=== PATIENT | male | born 1975 | race Caucasian/White ===

== ENCOUNTER 2021-11-06 15:25 | Inpatient (IN) | payer OTHER ==
[~2021-11-06] VITALS: Ht 160 cm; Wt 89.4 kg
[2021-11-06 15:40] VITALS: BP 103/59
[2021-11-06 20:30] VITALS: BP 118/61
[2021-11-06] MEDS: ETHYL ALCOHOL 62% ANTISEPTIC NASAL INHALANT 0.6 ML AMPUL NASAL SCH (21:28)
[2021-11-06] MEDS: DOCUSATE SODIUM 100 MG CAPSULE PO SCH (21:28)
[2021-11-06] MEDS: DEXAMETHASONE 4 MG TABLET PO SCH (21:29)
[2021-11-06] MEDS: AMOX TR/POT CLAV 875 MG/125 MG TABLET PO SCH (21:29)
[2021-11-06] MEDS: SENNA 187 MG TABLET PO SCH (21:29)
[2021-11-06] MEDS: LevETIRAcetam 500 MG TABLET PO SCH (21:29)
[2021-11-07] VITALS: BP 104/66
[2021-11-07] MEDS: FAMOTIDINE 20 MG TABLET PO SCH ×2 (05:56→16:30)
[2021-11-07 07:30] LABS: BASOPHILS % (AUTO) 0.1 % (0.0-2.0); EOSINOPHILS % (AUTO) 0 % (1.0-6.0); HEMATOCRIT 39.5 % (41-53); HEMOGLOBIN 13.4 g/dL (13.5-17.5); LYMPHOCYTES # (AUTO) 2.6 K/uL (1.0-4.8); LYMPHOCYTES % (AUTO) 27.4 % (22.0-44.0); MEAN CORPUSCULAR HEMOGLOBIN 29.3 pg (26.0-34.0); MEAN CORPUSCULAR VOLUME 86 fL (80-100); MONOCYTES # (AUTO) 0.6 K/uL (0.1-1.0); MONOCYTES % (AUTO) 6.2 % (2.0-9.0); NEUTROPHILS # (AUTO) 6.3 K/uL (1.8-7.7); NEUTROPHILS % (AUTO) 66.3 % (40.0-70.0); PLATELET COUNT (AUTO) 258 K/uL (150-450); RED BLOOD CELL COUNT(AUTO) 4.59 MIL/uL (4.50-5.90); RED CELL DISTRIBUTION WIDTH 14.9 % (11.5-14.5)
[2021-11-07 08:04] LABS: ALANINE AMINOTRANSFERASE 90 U/L (12-78); ALBUMIN 2.6 g/dL (3.4-5.0); ALKALINE PHOSPHATASE 78 U/L (46-116); ANION GAP 11 mmol/L (8-16); ASPARTATE AMINOTRANSFERASE 22 U/L (15-37); BILIRUBIN,TOTAL 0.6 mg/dL (0.1-1.0); CALCIUM, TOTAL 9.3 mg/dL (8.8-10.5); CARBON DIOXIDE 25 mmol/L (22-29); CHLORIDE 103 mmol/L (98-107); GLOMERULAR FILTR. RATE CALC > 60 mL/min (>60); GLUCOSE,RANDOM 106 mg/dL (70-110); POTASSIUM 4.2 mmol/L (3.5-5.1); SODIUM SERUM 139 mmol/L (136-145); TOTAL PROTEIN, SERUM 6.7 g/dL (6.4-8.2); UREA NITROGEN, BLOOD 16 mg/dL (7-18)
[2021-11-07] MEDS: ETHYL ALCOHOL 62% ANTISEPTIC NASAL INHALANT 0.6 ML AMPUL NASAL SCH ×2 (08:19→21:20)
[2021-11-07] MEDS: DOCUSATE SODIUM 100 MG CAPSULE PO SCH ×2 (08:19→21:19)
[2021-11-07] MEDS: AMOX TR/POT CLAV 875 MG/125 MG TABLET PO SCH ×2 (08:19→21:21)
[2021-11-07] MEDS: DEXAMETHASONE 4 MG TABLET PO SCH ×2 (08:19→21:21)
[2021-11-07] MEDS: LevETIRAcetam 500 MG TABLET PO SCH ×2 (08:20→21:19)
[2021-11-07 09:40] VITALS: BP 98/47
[2021-11-07] MEDS ORDERED: SODIUM CHLORIDE 0.9% 1,000 ML IV ONE (15:00)
[2021-11-07 15:20] VITALS: BP 133/61
[2021-11-07] MEDS ORDERED: FentaNYL CITRATE PF 100 MCG/2 ML VIAL ONE (18:28)
[2021-11-07] MEDS ORDERED: MIDAZOLAM HCL 2 MG/2 ML VIAL ONE (18:29)
[2021-11-07] MEDS ORDERED: IOHEXOL 300 MG/ML 150 ML VIAL ONE (18:40)
[2021-11-07] MEDS ORDERED: LIDOCAINE/PF 1% 30 ML VIAL ONE (18:42)
[2021-11-07] MEDS ORDERED: FentaNYL CITRATE PF 100 MCG/2 ML VIAL IVP ONE (18:45)
[2021-11-07] MEDS ORDERED: MIDAZOLAM HCL 2 MG/2 ML VIAL IVP ONE (18:45)
[2021-11-07 19:35] VITALS: BP 121/62
[2021-11-07] MEDS: MELATONIN 3 MG TABLET PO PRN (21:19)
[2021-11-07] MEDS: SENNA 187 MG TABLET PO SCH (21:19)
[2021-11-07] MEDS ORDERED: SODIUM CL IRRIG SOLN BOTTLE 250 ML IRRIG ONE (21:41)
[2021-11-07 23:09] VITALS: BP 94/57
[2021-11-07] MEDS: ACETAMINOPHEN 325 MG TABLET PO PRN (23:09)
[2021-11-08] MEDS: FAMOTIDINE 20 MG TABLET PO SCH ×2 (05:52→16:57)
[2021-11-08 08:08] VITALS: BP 104/60
[2021-11-08] MEDS: MULTIVITAMINS WITH MINERALS, THERAPEUTIC TABLET PO SCH (09:13)
[2021-11-08] MEDS: LevETIRAcetam 500 MG TABLET PO SCH ×2 (09:13→20:26)
[2021-11-08] MEDS: AMOX TR/POT CLAV 875 MG/125 MG TABLET PO SCH ×2 (09:14→20:26)
[2021-11-08] MEDS: DOCUSATE SODIUM 100 MG CAPSULE PO SCH ×2 (09:14→20:26)
[2021-11-08] MEDS: DEXAMETHASONE 4 MG TABLET PO SCH ×2 (09:14→20:26)
[2021-11-08] MEDS: ETHYL ALCOHOL 62% ANTISEPTIC NASAL INHALANT 0.6 ML AMPUL NASAL SCH ×2 (09:14→20:26)
[2021-11-08] MEDS: ENOXAPARIN SODIUM 60 MG/0.6 ML PF SYRINGE SQ SCH ×2 (09:23→20:26)
[2021-11-08 16:17] VITALS: BP 130/75
[2021-11-08] MEDS: MELATONIN 3 MG TABLET PO PRN (20:26)
[2021-11-08] MEDS: SENNA 187 MG TABLET PO SCH (20:31)
[2021-11-09] VITALS: BP 101/56
[2021-11-09] MEDS: FAMOTIDINE 20 MG TABLET PO SCH ×2 (06:01→17:50)
[2021-11-09 08:05] VITALS: BP 103/56
[2021-11-09] MEDS: ENOXAPARIN SODIUM 60 MG/0.6 ML PF SYRINGE SQ SCH ×2 (08:23→20:10)
[2021-11-09] MEDS: DOCUSATE SODIUM 100 MG CAPSULE PO SCH ×2 (08:23→20:11)
[2021-11-09] MEDS: MULTIVITAMINS WITH MINERALS, THERAPEUTIC TABLET PO SCH (08:23)
[2021-11-09] MEDS: DEXAMETHASONE 4 MG TABLET PO SCH ×2 (08:23→20:11)
[2021-11-09] MEDS: AMOX TR/POT CLAV 875 MG/125 MG TABLET PO SCH ×2 (08:23→20:11)
[2021-11-09] MEDS: LevETIRAcetam 500 MG TABLET PO SCH ×2 (08:23→20:11)
[2021-11-09] MEDS: ETHYL ALCOHOL 62% ANTISEPTIC NASAL INHALANT 0.6 ML AMPUL NASAL SCH ×2 (08:24→20:11)
[2021-11-09] MEDS: ACETAMINOPHEN 325 MG TABLET PO PRN (13:23)
[2021-11-09 16:05] VITALS: BP 98/62
[2021-11-09] MEDS: SENNA 187 MG TABLET PO SCH (20:11)
[2021-11-09] MEDS: MELATONIN 3 MG TABLET PO PRN (20:11)
[2021-11-10] VITALS: BP 115/64
[2021-11-10] MEDS: FAMOTIDINE 20 MG TABLET PO SCH ×2 (06:28→16:20)
[2021-11-10 08:00] VITALS: BP 102/69
[2021-11-10] MEDS: ETHYL ALCOHOL 62% ANTISEPTIC NASAL INHALANT 0.6 ML AMPUL NASAL SCH ×2 (09:01→21:42)
[2021-11-10] MEDS: AMOX TR/POT CLAV 875 MG/125 MG TABLET PO SCH ×2 (09:01→21:43)
[2021-11-10] MEDS: MULTIVITAMINS WITH MINERALS, THERAPEUTIC TABLET PO SCH (09:01)
[2021-11-10] MEDS: ENOXAPARIN SODIUM 60 MG/0.6 ML PF SYRINGE SQ SCH ×2 (09:01→21:42)
[2021-11-10] MEDS: LevETIRAcetam 500 MG TABLET PO SCH ×2 (09:02→21:42)
[2021-11-10] MEDS: DOCUSATE SODIUM 100 MG CAPSULE PO SCH ×2 (09:02→21:43)
[2021-11-10 16:05] VITALS: BP 122/62
[2021-11-10] MEDS: ACETAMINOPHEN 325 MG TABLET PO PRN (19:06)
[2021-11-10] MEDS: DEXAMETHASONE 2 MG TABLET PO SCH (21:43)
[2021-11-10] MEDS: SENNA 187 MG TABLET PO SCH (21:43)
[2021-11-11] VITALS: BP 113/67
[2021-11-11] MEDS: FAMOTIDINE 20 MG TABLET PO SCH ×2 (06:09→16:45)
[2021-11-11 08:30] VITALS: BP 98/57
[2021-11-11] MEDS: MULTIVITAMINS WITH MINERALS, THERAPEUTIC TABLET PO SCH (08:32)
[2021-11-11] MEDS: LevETIRAcetam 500 MG TABLET PO SCH ×2 (08:32→21:50)
[2021-11-11] MEDS: DOCUSATE SODIUM 100 MG CAPSULE PO SCH ×2 (08:32→21:50)
[2021-11-11] MEDS: ENOXAPARIN SODIUM 60 MG/0.6 ML PF SYRINGE SQ SCH ×2 (08:32→21:51)
[2021-11-11] MEDS: ACETAMINOPHEN 325 MG TABLET PO PRN ×2 (08:32→21:58)
[2021-11-11] MEDS: ETHYL ALCOHOL 62% ANTISEPTIC NASAL INHALANT 0.6 ML AMPUL NASAL SCH ×2 (08:32→21:50)
[2021-11-11] MEDS: AMOX TR/POT CLAV 875 MG/125 MG TABLET PO SCH ×2 (08:32→21:50)
[2021-11-11] MEDS: DEXAMETHASONE 2 MG TABLET PO SCH ×2 (09:00→22:25)
[2021-11-11 16:05] VITALS: BP 125/59
[2021-11-11] MEDS: SENNA 187 MG TABLET PO SCH (21:50)
[2021-11-12] VITALS: BP 104/64
[2021-11-12] MEDS: FAMOTIDINE 20 MG TABLET PO SCH ×2 (06:02→16:03)
[2021-11-12 08:01] VITALS: BP 92/54
[2021-11-12] MEDS: ETHYL ALCOHOL 62% ANTISEPTIC NASAL INHALANT 0.6 ML AMPUL NASAL SCH ×2 (08:05→20:35)
[2021-11-12] MEDS: DOCUSATE SODIUM 100 MG CAPSULE PO SCH ×2 (08:05→20:35)
[2021-11-12] MEDS: ENOXAPARIN SODIUM 60 MG/0.6 ML PF SYRINGE SQ SCH ×2 (08:05→20:35)
[2021-11-12] MEDS: LevETIRAcetam 500 MG TABLET PO SCH ×2 (08:05→20:35)
[2021-11-12] MEDS: MULTIVITAMINS WITH MINERALS, THERAPEUTIC TABLET PO SCH (08:05)
[2021-11-12] MEDS: DEXAMETHASONE 2 MG TABLET PO SCH ×2 (08:05→20:35)
[2021-11-12 15:20] VITALS: BP 111/68
[2021-11-12 20:00] VITALS: BP 118/62
[2021-11-12] MEDS: SENNA 187 MG TABLET PO SCH (20:35)
[2021-11-12 23:24] VITALS: BP 105/61
[2021-11-12] MEDS: ACETAMINOPHEN 325 MG TABLET PO PRN (23:24)
[2021-11-13] MEDS: FAMOTIDINE 20 MG TABLET PO SCH ×2 (06:18→18:14)
[2021-11-13] MEDS: LevETIRAcetam 500 MG TABLET PO SCH ×2 (07:49→20:32)
[2021-11-13] MEDS: DOCUSATE SODIUM 100 MG CAPSULE PO SCH ×2 (07:49→20:31)
[2021-11-13] MEDS: ETHYL ALCOHOL 62% ANTISEPTIC NASAL INHALANT 0.6 ML AMPUL NASAL SCH ×2 (07:49→20:31)
[2021-11-13] MEDS: ENOXAPARIN SODIUM 60 MG/0.6 ML PF SYRINGE SQ SCH ×2 (07:49→20:32)
[2021-11-13] MEDS: DEXAMETHASONE 2 MG TABLET PO SCH ×2 (07:49→20:32)
[2021-11-13] MEDS: MULTIVITAMINS WITH MINERALS, THERAPEUTIC TABLET PO SCH (07:49)
[2021-11-13 08:59] VITALS: BP 98/54
[2021-11-13 18:30] VITALS: BP 101/63
[2021-11-13 19:27] LABS: BASOPHILS % (AUTO) 0.2 % (0.0-2.0); EOSINOPHILS % (AUTO) 0.4 % (1.0-6.0); HEMATOCRIT 37.2 % (41-53); HEMOGLOBIN 12.7 g/dL (13.5-17.5); LYMPHOCYTES # (AUTO) 2.2 K/uL (1.0-4.8); LYMPHOCYTES % (AUTO) 27.3 % (22.0-44.0); MEAN CORPUSCULAR HEMOGLOBIN 29.4 pg (26.0-34.0); MEAN CORPUSCULAR HGB CONC 34.2 G/dL (31.0-37.0); MEAN CORPUSCULAR VOLUME 86 fL (80-100); MONOCYTES # (AUTO) 0.5 K/uL (0.1-1.0); MONOCYTES % (AUTO) 6.1 % (2.0-9.0); NEUTROPHILS # (AUTO) 5.4 K/uL (1.8-7.7); PLATELET COUNT (AUTO) 341 K/uL (150-450); RED BLOOD CELL COUNT(AUTO) 4.33 MIL/uL (4.50-5.90); RED CELL DISTRIBUTION WIDTH 15.3 % (11.5-14.5)
[2021-11-13 19:38] LABS: ANION GAP 11 mmol/L (8-16); CALCIUM, TOTAL 8.8 mg/dL (8.8-10.5); CARBON DIOXIDE 24 mmol/L (22-29); CHLORIDE 107 mmol/L (98-107); CREATININE 1.12 mg/dL (0.60-1.30); GLOMERULAR FILTR. RATE CALC > 60 mL/min (>60); GLUCOSE,RANDOM 150 mg/dL (70-110); POTASSIUM 3.4 mmol/L (3.5-5.1); SODIUM SERUM 142 mmol/L (136-145); UREA NITROGEN, BLOOD 20 mg/dL (7-18)
[2021-11-13] MEDS: SENNA 187 MG TABLET PO SCH (20:31)
[2021-11-14] VITALS: BP 121/71
[2021-11-14] MEDS ORDERED: SODIUM CL IRRIG SOLN BOTTLE 250 ML IRRIG ONE (01:06)
[2021-11-14] MEDS: FAMOTIDINE 20 MG TABLET PO SCH ×2 (05:36→16:06)
[2021-11-14] MEDS: MULTIVITAMINS WITH MINERALS, THERAPEUTIC TABLET PO SCH (08:10)
[2021-11-14] MEDS: ENOXAPARIN SODIUM 60 MG/0.6 ML PF SYRINGE SQ SCH ×2 (08:10→20:32)
[2021-11-14] MEDS: LevETIRAcetam 500 MG TABLET PO SCH ×2 (08:12→20:32)
[2021-11-14] MEDS: DOCUSATE SODIUM 100 MG CAPSULE PO SCH ×2 (08:12→20:32)
[2021-11-14] MEDS: ETHYL ALCOHOL 62% ANTISEPTIC NASAL INHALANT 0.6 ML AMPUL NASAL SCH ×2 (08:12→20:32)
[2021-11-14] MEDS: ACETAMINOPHEN 325 MG TABLET PO PRN ×3 (08:30→23:33)
[2021-11-14] MEDS ORDERED: DEXAMETHASONE 2 MG TABLET PO SCH (08:30)
[2021-11-14 08:35] VITALS: BP 118/65
[2021-11-14] MEDS: DEXAMETHASONE 4 MG TABLET PO SCH (09:53)
[2021-11-14 16:30] VITALS: BP 112/62
[2021-11-14] MEDS: SENNA 187 MG TABLET PO SCH (20:32)
[2021-11-14 23:33] VITALS: BP 100/59
[2021-11-15] MEDS: FAMOTIDINE 20 MG TABLET PO SCH ×2 (06:12→17:16)
[2021-11-15 08:05] VITALS: BP 99/60
[2021-11-15] MEDS: MULTIVITAMINS WITH MINERALS, THERAPEUTIC TABLET PO SCH (08:37)
[2021-11-15] MEDS: LevETIRAcetam 500 MG TABLET PO SCH ×2 (08:37→20:02)
[2021-11-15] MEDS: DEXAMETHASONE 4 MG TABLET PO SCH (08:37)
[2021-11-15] MEDS: ENOXAPARIN SODIUM 60 MG/0.6 ML PF SYRINGE SQ SCH ×2 (08:37→20:02)
[2021-11-15] MEDS: ETHYL ALCOHOL 62% ANTISEPTIC NASAL INHALANT 0.6 ML AMPUL NASAL SCH ×2 (08:39→20:04)
[2021-11-15] MEDS: DOCUSATE SODIUM 100 MG CAPSULE PO SCH ×2 (08:39→20:02)
[2021-11-15] MEDS ORDERED: DEXA4 PO (10:09)
[2021-11-15] MEDS ORDERED: ENOX60DI8 SQ (10:09)
[2021-11-15] MEDS ORDERED: FAMO20 PO (10:09)
[2021-11-15] MEDS ORDERED: SENN-187 PO (10:09)
[2021-11-15] MEDS ORDERED: ACET325T51 PO (10:09)
[2021-11-15] MEDS ORDERED: LEVE500T8 PO (10:09)
[2021-11-15] MEDS ORDERED: DOCU-119 PO (10:09)
[2021-11-15] MEDS ORDERED: MULT-1239 PO (10:09)
[2021-11-15] MEDS ORDERED: MELA3TAB89 PO (10:09)
[2021-11-15] MEDS: ACETAMINOPHEN 325 MG TABLET PO PRN (10:13)
[2021-11-15 15:51] VITALS: BP 111/66
[2021-11-15] MEDS: MELATONIN 3 MG TABLET PO PRN (20:02)
[2021-11-15] MEDS: SENNA 187 MG TABLET PO SCH (20:02)
[2021-11-16] VITALS: BP 116/62
[2021-11-16] MEDS: FAMOTIDINE 20 MG TABLET PO SCH (06:06)
[2021-11-16] MEDS: ETHYL ALCOHOL 62% ANTISEPTIC NASAL INHALANT 0.6 ML AMPUL NASAL SCH (08:42)
[2021-11-16] MEDS: MULTIVITAMINS WITH MINERALS, THERAPEUTIC TABLET PO SCH (08:42)
[2021-11-16] MEDS: DOCUSATE SODIUM 100 MG CAPSULE PO SCH (08:42)
[2021-11-16] MEDS: ENOXAPARIN SODIUM 60 MG/0.6 ML PF SYRINGE SQ SCH (08:43)
[2021-11-16] MEDS: LevETIRAcetam 500 MG TABLET PO SCH (08:43)
[2021-11-16] MEDS ORDERED: DEXAMETHASONE 4 MG TABLET PO SCH (09:00)
[2021-11-16 09:25] VITALS: BP 105/64
[2021-11-16] MEDS ORDERED: SODIUM CL IRRIG SOLN BOTTLE 250 ML IRRIG ONE (13:43)
== END 2021-11-16 14:30 | disposition home or self-care (01) | DRG 58 ==
LOC: 2WR 15:25
PROVIDERS: ADMIT Physical Medicine & Rehabilitation; ATTEND Physical Medicine & Rehabilitation
DX: G81.94 Hemiplegia, unspecified affecting left nondominant side (principal); E43 Unspecified severe protein-calorie malnutrition; C71.9 Malignant neoplasm of brain, unspecified; I82.402 Acute embolism and thrombosis of unspecified deep veins of left lower extremity; K61.1 Rectal abscess; L02.31 Cutaneous abscess of buttock; Z74.1 Need for assistance with personal care; G31.84 Mild cognitive impairment of uncertain or unknown etiology; E66.9 Obesity, unspecified; Z20.822 Contact with and (suspected) exposure to COVID-19; D64.9 Anemia, unspecified; Z79.01 Long term (current) use of anticoagulants; Z68.34 Body mass index [BMI] 34.0-34.9, adult; Z86.16 Personal history of COVID-19
CPT/HCPCS: 37619; 80048; 80053; 85025; 87081; 92507; 92523; 93970; 97112; 97116; 97162; 97166; 97530; 97535; 99366; J1650; J2250; J3010; J3490; J8540; Q9967